=== PATIENT | male | born 1950 | race Caucasian/White ===

== ENCOUNTER 2023-05-16 08:34 | Emergency (ER) | payer MEDICARE, OTHER ==
[~2023-05-16] VITALS: Ht 172.7 cm; Wt 79.9 kg
[2023-05-16 08:36] VITALS: TEMP 98.5
[2023-05-16] MEDS ORDERED: TRAM50TA2 (08:52)
[2023-05-16] MEDS ORDERED: TIZA2TA (08:52)
[2023-05-16] MEDS ORDERED: KETO2SHA8 (08:52)
[2023-05-16] MEDS ORDERED: TAMS1CAP17 (08:52)
[2023-05-16] MEDS ORDERED: LISI20TA33 (08:52)
[2023-05-16] MEDS ORDERED: NIFE-3 (08:52)
[2023-05-16] MEDS ORDERED: OMEP40CA5 (08:52)
[2023-05-16] MEDS ORDERED: IBUP-1022 (08:52)
[2023-05-16] MEDS ORDERED: SIMV40TA20 (08:52)
[2023-05-16] MEDS: KETOROLAC 30 MG/ML 1ML VIAL IV ONE (12:02)
[2023-05-16] MEDS ORDERED: ONDA4TAB6 PO (12:12)
[2023-05-16] MEDS ORDERED: PEPC1TAB5 PO (12:12)
[2023-05-16 12:17] LABS: BASO % 0.2 % (0.0-1.0); EOS % 0.5 % (0.0-3.0); HEMATOCRIT 33.1 % (42.0-52.0); HEMOGLOBIN 10.7 g/dl (13.5-17.5); LYMPH # 1.4 10^3/uL (1.5-5.0); LYMPH % 16.4 % (24.0-44.0); MEAN CORPUSCULAR HEMOGLOBIN 28.2 pg (27.0-33.0); MEAN CORPUSCULAR HGB CONC 32.3 g/dl (32.0-36.5); MEAN CORPUSCULAR VOLUME 87.3 fl (80.0-96.0); MONO # 0.9 10^3/uL (0.0-0.8); MONO % 10.4 % (2.0-8.0); NEUTROPHILS # 6.3 10^3/uL (1.5-8.5); NEUTROPHILS % 71.6 % (36.0-66.0); PLATELET COUNT, AUTOMATED 318 10^3/uL (150-450); RED BLOOD COUNT 3.79 10^6/uL (4.30-6.10); WHITE BLOOD COUNT 8.8 10^3/uL (4.0-10.0)
[2023-05-16 12:27] LABS: ERYTHROCYTE SEDIMENTATION RATE 65 mm/hr (0-20)
[2023-05-16 12:30] LABS: INR 1.14; PROTHROMBIN TIME 14.3 SECONDS (12.5-14.5)
[2023-05-16 12:45] LABS: LIPASE 20 U/L (12-53)
[2023-05-16 12:47] LABS: ALBUMIN 2.5 G/DL (3.2-5.2); ALKALINE PHOSPHATASE 77 U/L (46-116); ALT/SGPT 16 U/L (7.0-40); AST/SGOT 16 U/L (<34); BILIRUBIN,DIRECT 0.2 MG/DL (<0.4); BILIRUBIN,TOTAL 0.4 MG/DL (0.3-1.2); BLOOD UREA NITROGEN 12 MG/DL (9-23); CALCIUM LEVEL 8.4 MG/DL (8.3-10.6); CARBON DIOXIDE LEVEL 29 MMOL/L (20-31); CHLORIDE LEVEL 107 MMOL/L (98-107); CREATININE FOR GFR 0.68 MG/DL (0.70-1.30); GLOMERULAR FILTRATION RATE > 60.0 (>42); GLUCOSE, FASTING 100 MG/DL (74-106); POTASSIUM SERUM 3.9 MMOL/L (3.5-5.1); SODIUM LEVEL 141 MMOL/L (136-145)
[2023-05-16] MEDS ORDERED: ISOVUE-370 76% 100ML VIAL As Ordered ONE (12:52)
[2023-05-16 14:02] VITALS: BP 145/82; O2SAT 99
[2023-05-17 14:12] LABS: IgG P18 AB Absent (.); IgG P23 AB Absent (.); IgG P28 AB Absent (.); IgG P30 AB Absent (.); IgG P39 AB Absent (.); IgG P41 AB Absent (.); IgG P45 AB Absent (.); IgG P66 AB Absent (.); IgG P93 AB Absent (.); IgM P23 AB Absent (.); IgM P39 AB Absent (.); IgM P41 AB Absent (.); LYME IgG WB INTERPRETATION Negative (.); LYME IgM WB INTERPRETATION Negative (.)
== END 2023-05-16 14:02 | disposition home or self-care (01) ==
LOC: M ED 08:34
DX: R53.83 Other fatigue (principal); D89.9 Disorder involving the immune mechanism, unspecified; I10 Essential (primary) hypertension; Z79.1 Long term (current) use of non-steroidal anti-inflammatories (NSAID); Z79.899 Other long term (current) drug therapy
CPT/HCPCS: 72128; 72131; 74177; 80048; 80076; 83690; 85025; 85610; 85652; 86140; 86617; 96374; 99284; J1885; Q9967

== ENCOUNTER → 2023-06-01 | Outpatient (CLI) | payer MEDICARE ==
[~2023-06-01] MED LIST: IBUP-1022; KETO2SHA8; LISI20TA33; NIFE-3; OMEP40CA5; ONDA4TAB6 PO; PEPC1TAB5 PO; SIMV40TA20; TAMS1CAP17; TIZA2TA; TRAM50TA2
== END ==
LOC: M PLAIMG 12:09
PROVIDERS: ATTEND Physician Assistant
DX: I35.2 Nonrheumatic aortic (valve) stenosis with insufficiency (principal); I77.810 Thoracic aortic ectasia

== ENCOUNTER → 2023-06-13 | Outpatient (CLI) | payer MEDICARE | LOC: M RAD 10:36 | PROVIDERS: ATTEND Physician Assistant | DX: R60.0 Localized edema (principal) ==

== ENCOUNTER 2024-10-08 09:00 | Emergency (ER) | payer MEDICARE ==
[~2024-10-08] VITALS: Ht 175.3 cm; Wt 77.2 kg
[~2024-10-08 09:00] MED LIST changes: -IBUP-1022; +IBUP-1022 PO; +KETO120S5 TOP; -KETO2SHA8; -LISI20TA33; +LISI20TA33 PO; -NIFE-3; +NIFE-3 PO; +ONDA-282 PO; -ONDA4TAB6 PO; -SIMV40TA20; +SIMV40TA20 PO
[2024-10-08 09:29] LABS: BASO # 0.0 10^3/uL (0.0-0.2); BASO % 0.2 % (0.0-1.0); EOS # 0.1 10^3/uL (0.0-0.5); EOS % 0.8 % (0.0-3.0); LYMPH # 1.8 10^3/uL (1.5-5.0); LYMPH % 20.8 % (24.0-44.0); MONO # 0.7 10^3/uL (0.0-0.8); MONO % 7.6 % (2.0-8.0); NEUTROPHILS # 6.0 10^3/uL (1.5-8.5); NEUTROPHILS % 70.1 % (36.0-66.0); PLATELET COUNT, AUTOMATED 179 10^3/uL (150-450)
[2024-10-08 09:42] LABS: INR 1.05
[2024-10-08 10:06] LABS: ALT/SGPT 26 U/L (7.0-40); AST/SGOT 35 U/L (<34); CALCIUM LEVEL 9.6 MG/DL (8.3-10.6); CARBON DIOXIDE LEVEL 26 MMOL/L (20-31); CHLORIDE LEVEL 107 MMOL/L (98-107); CREATININE FOR GFR 0.78 MG/DL (0.70-1.30); GLOMERULAR FILTRATION RATE > 90.0 (>42); POTASSIUM SERUM 4.7 MMOL/L (3.5-5.1); SODIUM LEVEL 145 MMOL/L (136-145)
[2024-10-08] MEDS: MECLIZINE 25 MG TABLET PO ONE (10:11)
[2024-10-08] MEDS ORDERED: VITA100066 PO (12:37)
[2024-10-08] MEDS ORDERED: CYAN100017 INJ (12:37)
[2024-10-08] MEDS ORDERED: CYAN-1 PO (12:37)
[2024-10-08] MEDS ORDERED: HOME MED LIST COMPLETE! XX SCH (12:40)
[2024-10-08 12:45] VITALS: O2SAT 97
[2024-10-08] MEDS ORDERED: MECL-209 PO (12:54)
[2024-10-08 13:00] VITALS: BP 135/68; TEMP 97
== END 2024-10-08 13:14 | disposition home or self-care (01) ==
LOC: M ED 09:00
DX: H81.4 Vertigo of central origin (principal); I10 Essential (primary) hypertension; Z79.1 Long term (current) use of non-steroidal anti-inflammatories (NSAID); Z79.899 Other long term (current) drug therapy

== ENCOUNTER → 2024-12-19 | Outpatient (CLI) | payer MEDICARE ==
[~2024-12-19] MED LIST changes: +CYAN-1 PO; +CYAN100017 INJ; -IBUP-1022 PO; +IBUP600T42 PO; +MECL-209 PO; +VITA100066 PO
== END ==
LOC: M CARPUL 13:06
PROVIDERS: ATTEND Physician Assistant
DX: I35.2 Nonrheumatic aortic (valve) stenosis with insufficiency (principal); I77.810 Thoracic aortic ectasia